=== PATIENT | female | born 1970 | race Caucasian/White ===

== ENCOUNTER 2018-08-12 19:31 | Emergency (ER) | payer SELFPAY ==
[~2018-08-12] VITALS: Ht 160 cm; Wt 73.0 kg
[2018-08-12] MEDS ORDERED: KETOROLAC 30MG/ML VIAL IM ONE (20:15)
[2018-08-12 23:19] VITALS: BP 151/87
== END 2018-08-12 23:21 | disposition home or self-care (01) ==
LOC: ER 19:31
DX: R07.9 Chest pain, unspecified (principal)
CPT/HCPCS: 71111; 71250; 93005; 96372; 99284; J1885